=== PATIENT | female | born 1950 | race Caucasian/White ===

== ENCOUNTER 2020-04-27 12:48 | Inpatient (IN) | payer OTHER, MEDICARE ==
[~2020-04-27] VITALS: Ht 160 cm; Wt 63.0 kg
--- NOTE | ~2020-04-27 | O ---
[facility] [place] [address] OPERATIVE REPORT Name: HUBER BURKS Room #: 456-P ADM IN M.R.#: [id number] Admission: 04/27/20 Attend Phys: Steve Key MD Discharge: Date of : 54 Report #: [id number] THIS REPORT FOR: cc: Heron Franco,Bal Michele MD ~ DATE OF SERVICE: 04/28/2020 PREOPERATIVE DIAGNOSIS: Suspected perforated appendicitis with large fecalith. POSTOPERATIVE DIAGNOSIS: Suspected perforated appendicitis with large fecalith. OPERATIVE PROCEDURE DONE: Laparoscopic appendectomy. OPERATING SURGEON: Bal Mathew MD INDICATIONS FOR THE PROCEDURE: The patient is a 69-year-old female who presented with complaints of nonspecific lower abdominal pain. Initial CT scan that was done showed features of suspected gallstone ileus. The patient with a history of cholecystectomy done about [address] subsequent [address] showed that the appendicolith was outside the bowel lumen. There was a question of a fairly large appendicolith with possible perforation. The patient was advised a diagnostic laparoscopy and appendectomy. The patient showed understanding and agreed to proceed. DESCRIPTION OF PROCEDURE: After explaining to the patient in detail and informed consent was obtained, the patient was identified in the preoperative holding area. The patient was transferred to the operating room and was placed in supine position. Sequential compressive devices were placed for DVT prophylaxis. Preoperative antibiotics were given. After induction of anesthesia, the abdomen was prepped and draped in a sterile fashion. Through a left upper quadrant 1 cm stab incision, I attempted to place a Veress needle; however, I was not able to get into the right intraperitoneal due to the patient's thin frame. I did not make any further attempts. I made another 1 cm incision in the left lower quadrant and using Optiview technique, peritoneal cavity was entered and pneumoperitoneum was created. Thereafter through a 2 cm supraumbilical incision, a 12 mm trocar was placed and another 5 mm trocar was placed through a suprapubic incision approximately about 2 cm above the pubic symphysis. On initial inspection, the patient was noted to have some free fluid in the pelvis and right lower quadrant region. The appendix appeared to be very short and was adhered to the lateral abdominal wall. At the base of the appendix, there was a large fecalith that was perforated. Appendix showed features of inflammation. A window was created in the mesoappendix. Mesoappendix was divided using a DO white load stapler. Another blue load stapler was used to divide the base of the appendix. Thorough saline irrigation [address] [address] OPERATIVE REPORT Name: HUBER BURKS Room #: 456-P [facility] IN M.R.#: [id number] Admission: 04/27/20 Attend Phys: Steve Key MD Discharge: Date of : 54 Report #: [id number] was given. The appendicolith and the appendix were retrieved using an EndoCatch. Absolute hemostasis was ensured. A 19-Polish DAMON drain was placed in the pelvis and this was anchored in place with 2-0 nylon. The 12 mm port site incision in the supraumbilical region was closed with 0 Vicryl for the fascia. Skin was closed with 4-0 Monocryl for all the incisions. Dermabond was applied. The patient was stable at the end of the procedure. The patient was awoken from anesthesia and was transferred to the recovery room in stable condition. ESTIMATED BLOOD LOSS: Approximately 10 mL. CONDITION OF THE PATIENT: Stable. FLUIDS GIVEN: Per anesthesia notes. SPECIMEN SENT: Appendix. COMPLICATIONS: None. ANESTHESIA: General anesthesia. By: 1710 1727 Bal Mathew MD /nt
[2020-04-27 13:03] VITALS: BP 119/75
[2020-04-27 13:39] LABS: ABSOLUTE NEUTROPHILS 7.8 thou/uL (1.4-8.2); BASOPHILS 0.3 % (0.0-2.0); EOSINOPHILS 0.5 % (0.0-3.0); HEMATOCRIT 36.4 % (37.0-47.0); HEMOGLOBIN 11.9 gm/dL (12.0-15.0); LYMPHOCYTES 12.7 % (24.0-44.0); MCH 29.8 pg (26.0-34.0); MCHC 32.7 g/dL (28.0-37.0); MONOCYTES 7.7 % (1.0-8.0); PLATELET COUNT 250 thou/uL (150-400); POLYS 78.8 % (36.0-66.0); RBC 4.01 mil/uL (4.20-5.00); RDW 13.6 % (10.5-14.5); WBC 9.9 thou/uL (4.0-11.0)
[2020-04-27 13:44] LABS: CALCIUM 8.9 mg/dL (8.5-10.1); CREATININE 0.7 mg/dL (0.6-1.0); POTASSIUM 3.4 mmol/L (3.5-5.1)
[2020-04-27 15:31] LABS: ALBUMIN 3.5 g/dL (3.4-5.0); DIRECT BILIRUBIN 0.1 mg/dL (<0.1-0.2); TOTAL BILIRUBIN 0.6 mg/dL (0.2-1.0)
[2020-04-27 17:01] VITALS: BP 101/77
[2020-04-27 17:28] VITALS: BP 92/47
[2020-04-27 17:39] LABS: FOLIC ACID 27.8 ng/mL (8.6-58.9)
[2020-04-27 17:48] VITALS: BP 101/53
--- NOTE | 2020-04-27 18:18 | NUR ---
PATIENT ARRIVED TO UNIT AT APPROX 1750. VSS; TEMP ELEVATED. WILL INFORM PROVIDER. DENIES PAIN. BELONGINGS DOCUMENTED. HX AND EDUCATED COMPLETED. FALL PRECAUTIONS IN PLACE. WILL ENDORSE TO NOC RN
[2020-04-27 20:11] VITALS: BP 103/55
--- NOTE | 2020-04-28 03:20 | NUR ---
PT CARE ASSUMED WITH PT IN BED AND ADMISIOB STARTED BY DAY NURSE.ADMISSION SYSTEM ASSESSMENT AND OTHER COMPLETED.PT IS A.O X4.PT IS UP WITH UP WITH STANDBY ASSIST TO THE RESTROOM.PT C/O PAIN AND VINNY POWER ORDERED FENTANYL Q4H PRN FOR PAIN MANAGEMENT.IV ACCESS ON LT AC WITH NS AT 125CC/HR.PT HAD A BM FOR ME YESTERDAY.PT IS ON ROOM AIR.PT IS ALLERGY TO LATEX.WILL CONTINUE TO MONITOR POC
[2020-04-28 04:31] VITALS: BP 74/41
[2020-04-28 05:19] LABS: ABSOLUTE NEUTROPHILS 8.6 thou/uL (1.4-8.2); BASOPHILS 0.1 % (0.0-2.0); LYMPHOCYTES 12.9 % (24.0-44.0); MCH 30.2 pg (26.0-34.0); MCHC 33.3 g/dL (28.0-37.0); MCV 90.7 fL (80.0-100.0); MONOCYTES 5.5 % (1.0-8.0); POLYS 81.5 % (36.0-66.0); RBC 3.31 mil/uL (4.20-5.00); RDW 13.6 % (10.5-14.5); WBC 10.6 thou/uL (4.0-11.0)
[2020-04-28 05:25] LABS: CALCIUM 7.7 mg/dL (8.5-10.1); CREATININE 0.8 mg/dL (0.6-1.0); MAGNESIUM 1.7 mg/dL (1.8-2.4); POTASSIUM 3.3 mmol/L (3.5-5.1)
[2020-04-28 05:37] LABS: PLATELET COUNT 173 thou/uL (150-400)
[2020-04-28 07:21] VITALS: BP 93/51
[2020-04-28 08:25] VITALS: BP 110/54
[2020-04-28 08:44] LABS: APTT 35.7 Seconds (24.5-32.8); INR 1.2; PROTIME 13.4 Seconds (9.3-11.4)
[2020-04-28 09:11] LABS: URINE BILIRUBIN NEGATIVE (Negative); URINE BLOOD NEGATIVE (Negative); URINE CLARITY CLEAR; URINE COLOR YELLOW; URINE GLUCOSE-RANDOM* NEGATIVE (Negative); URINE KETONES NEGATIVE (Negative); URINE NITRITE-REFLEX NEGATIVE (Negative); URINE PROTEIN (DIPSTICK) NEGATIVE (Negative); URINE SPECIFIC GRAVITY 1.025 (1.005-1.035); URINE UROBILINOGEN 0.2 E.U./dl (0.2-1.0)
[2020-04-28 09:14] LABS: URINE LEUKOCYTES-REFLEX 1+ (Negative)
[2020-04-28 09:46] LABS: CASTS None Seen /LPF (None Seen); CRYSTALS None Seen /LPF (None Seen); MUCUS 0-3 Light strn/LPF (None Seen); SQUAMOUS 4-10 Moderate /LPF (0-3)
[2020-04-28 09:47] LABS: BACTERIA-REFLEX >30 Many /HPF (None Seen); URINE RBC None Seen /HPF (0-2); URINE WBC-REFLEX 6-15 Few /HPF (0-5)
[2020-04-28 09:48] LABS: RENAL EPITHELIAL CELLS 0-3 Few /LPF (None Seen)
--- NOTE | 2020-04-28 12:17 | NUR ---
PT ADMITTED RELATED TO GALLSTONES; ILLIEUS; CONSTIPATION. CM REVIEWED CHART AND SPOKE WITH CARE TEAM. CM CALLED AND SPOKE WITH PT OVER THE PHONE THIS DAY. PT APPEARED TO BE A&O X4. CM ROLE INTRODUCED. PT INDICATED SHE [place] [facility] [place] [facility] AND THAT HE DTR RESIDES WITH HER. THERE ARE 5 STEPS TO ENTER AND 5 UP AND 5 DOWN INSIDE. 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 PT INDICATED NO HH OR OP PT HX. PT INDICATED SHE PLANS TO RETURN HOME ONCE MEDICALLY STABLE. PT TO HAS GEN SURGERY CONSULT FOR A DIAGNOSTIC LAPROSCOPY AND STONE REMOVAL THIS DAY. CM TO FOLLOW INDICATED WITH DC PLANNING.
--- NOTE | 2020-04-28 13:51 | NUR ---
ASSUMED PT CARE THIS AM. PT HAD A LOW BLOOD PRESSURE THIS AM OF 93/51, DOCTOR CALLED AND ORDERED A FLUID BOLUS TO INCREASE BP. PATIENT REPORTING THAT THIS BP IS NORMAL FOR HER. REPORTING NO NAUSEA. ABDOMINAL PAIN REPONDING WELL TO MEDS GIVEN PER EMAR. PT HAS BEEN CONTINENT AND AMBULATORY TO THE BATHROOM WITH STANDBY ASSIST. IV PATENT, MEDS AND FLUIDS INFUSING WELL. PT REMAINS NPO TODAY. DR. FRANCISCO ORDERED A CT WITH IV CONTRAST, COMPLETED. THEN ORDERED A CT WITH PO CONTRAST. VERIFIED THAT DR FRANCISCO WANTED THE PATIENT TO HAVE THE PO CONTRAST EVEN WITH BEING NPO, DOCTOR CONFIRMED THIS TO BE DONE. URINE IS A DARK PEG COLOR. PT IS PLEASANT, AND CALLS APPROPRIATELY WHEN NEEDED.
[2020-04-28 15:10] VITALS: BP 88/46
[2020-04-28 20:20] VITALS: BP 97/56
--- NOTE | 2020-04-29 03:20 | NUR ---
PT CARE ASSUMED WITH PT IN BED .PT APPEARED TO BE IN NO ACUTE DISTRESS AT POINT OF SHIFT CHANGE.PT IS UP WITH STANDBY ASSISTANCE.PT HAD APPENDECTOMY YESTERDAY AND LAP SITES OK.PT HAS A DAMON DRAIN IN PLACE .PAIN MANAGED WITH FENTANYL.IV ACCESS GOT BAD AND NEW INSERTED IN LT HAND WITH NS AT 125.PT DID VOID AND BLADDER SCAN SHOWING 262.WILL RECHECK AND CONTINUE TO MONITOR.
[2020-04-29 04:35] VITALS: BP 101/63
[2020-04-29 06:13] LABS: ABSOLUTE NEUTROPHILS 7.8 thou/uL (1.4-8.2); BASOPHILS 0.1 % (0.0-2.0); HEMATOCRIT 29.4 % (37.0-47.0); HEMOGLOBIN 9.8 gm/dL (12.0-15.0); LYMPHOCYTES 5.4 % (24.0-44.0); MCH 30.4 pg (26.0-34.0); MCHC 33.4 g/dL (28.0-37.0); MCV 91.2 fL (80.0-100.0); MONOCYTES 4.3 % (1.0-8.0); PLATELET COUNT 155 thou/uL (150-400); POLYS 90.2 % (36.0-66.0); RBC 3.23 mil/uL (4.20-5.00); RDW 13.5 % (10.5-14.5); WBC 8.7 thou/uL (4.0-11.0)
[2020-04-29 07:06] LABS: ALBUMIN 2.4 g/dL (3.4-5.0); CALCIUM 8.2 mg/dL (8.5-10.1); CREATININE 0.7 mg/dL (0.6-1.0); MAGNESIUM 1.7 mg/dL (1.8-2.4); POTASSIUM 3.8 mmol/L (3.5-5.1); TOTAL BILIRUBIN 0.8 mg/dL (0.2-1.0); TOTAL PROTEIN 5.1 g/dL (6.4-8.2)
[2020-04-29 08:20] VITALS: BP 104/63
[2020-04-29 09:20] VITALS: BP 115/74
[2020-04-29 16:00] VITALS: BP 115/74
--- NOTE | 2020-04-29 17:03 | NUR ---
RN ASSUMED PT'S CARE AT 0700AM, PT IS A&OX3, PT HAD LAPAROSCOPIC APPENDECTOMY AT 04/28/20, PT IS CONTINUING IV ABX, PT IS TOLERATED REGULAR FOOD AT LUCH TIME, PT GETS UP TO WALK IN HALLWAY, PT'S ABD DAMON DRINAGE TUBE IS WORKING, SURGICAL AREAS ARE INTACT , PT 'S VS ARE STABLE, PT DENIES PAIN AND N/V BY THIS TIME.
[2020-04-30 05:23] LABS: HEMATOCRIT 31.7 % (37.0-47.0); HEMOGLOBIN 10.3 gm/dL (12.0-15.0); MCH 29.9 pg (26.0-34.0); MCHC 32.7 g/dL (28.0-37.0); MCV 91.4 fL (80.0-100.0); RBC 3.46 mil/uL (4.20-5.00); RDW 13.6 % (10.5-14.5); WBC 7.3 thou/uL (4.0-11.0)
[2020-04-30 05:40] LABS: CALCIUM 8.4 mg/dL (8.5-10.1); CREATININE 0.7 mg/dL (0.6-1.0); MAGNESIUM 1.7 mg/dL (1.8-2.4); POTASSIUM 3.6 mmol/L (3.5-5.1)
--- NOTE | 2020-04-30 07:20 | NUR ---
VSS-AFEBRILE. RESTED WELL THROUGH NIGHT WITH FEW NEEDS. PAIN WELL CONTROLLED WITH IV AND PO PAIN MEDICATIONS. OOB AD MARIELA-STEADY ON FEET. DAMON DRAIN PUT OUT 30ML SEROUS FLUID. NO DIFFICULTY VOIDING, SMALL, FIRM BM OVERNIGHT. CALLS APPROPRIATELY FOR ANY NEEDED ASSISTANCE.
[2020-04-30 07:51] VITALS: BP 121/73
[2020-04-30] MEDS ORDERED: PROPRANOLOL 1010 MG PO (11:28)
[2020-04-30] MEDS ORDERED: METRONIDAZOLE500 M4 PO (11:28)
[2020-04-30] MEDS ORDERED: ULTRAM50 MG PO (11:28)
[2020-04-30] MEDS ORDERED: OXYCODONE HCL 55 MG PO (11:28)
[2020-04-30] MEDS ORDERED: LEVOFLOXACIN500 MG PO (11:28)
[2020-04-30] MEDS ORDERED: PEPCID20 MG PO (11:28)
[2020-04-30] MEDS ORDERED: COLACE100 MG PO (11:28)
--- NOTE | 2020-04-30 11:52 | NUR ---
ASSUMED PT CARE THIS AM. PT VSS, A&OX4. PT COMPLAINS OF PAIN IN THE LOWER ABDOMINAL REGION, DR MADE AWARE TO ORDER DIFFERENT PAIN MEDICATION. LAP SITES ARE C/D/I. DAMON DRAIN WORKING WELL. IV PATENT, MEDS INFUSED AND TAKEN PO WITHOUT COMPLAINT. PT CONTINENT, AMBULATORY TO THE BATHROOM. CALLS APPROPRIATELY WHEN NEEDED. PT ON TELEMETRY AND ON ROOM AIR.
[2020-04-30 12:43] VITALS: BP 121/73
--- NOTE | 2020-05-03 17:06 | PATH ---
[facility] [address] [place] [address] PATHOLOGY RPT PROCEDURE Name: HUBER ANAYA Room #: 456-P DIS IN M.R.#: [id number] Admission: 04/27/20 Date of : 54 Discharge: 04/30/20 Report #: [id number] Path Case #: [id number] [facility] Accession Number: [id number] . 01 Material submitted: . appendix - APPENDIX . 01 Clinical history: . LAPAROSCOPIC APPENDECTOMY POSSIBLE PERFORATRED APPENDIX . 02 Diagnosis: Vermiform appendix, laparoscopic excision: - Acute appendicitis, with transmural inflammation, perforation, and associated acute serositis. - Negative for malignancy. (MLK/db; 05/03/2020) LBQ 05/03/2020 1508 Local . 02 Electronically signed: . Briana Max MD, Pathologist NPI- [id number] . 01 Gross description: . The specimen is received in formalin, labeled "Huber Anaya, marty". Received is a vermiform appendix measuring 4.2 cm in length by up to 1.4 cm in diameter with a moderate amount of attached mesoappendix. The serosal surface is dusky pink-felix in appearance with overlying exudate. There is a 1.2 cm perforation noted, which is 1.3 cm from the proximal margin and a patent to dilated lumen. The surgical margin is closed with a line of perri. The perri are removed and the new margin is inked black. Sectioning reveals a pinpoint to dilated lumen. The specimen is submitted entirely as follows: . A1 proximal margin and bisected tip A2 entire area of perforation A3 remainder of appendix. (CAA; 05/02/2020) QA/[facility] 05/02/2020 1114 Local . 02 Pathologist provided ICD-10: K35.80 . 02 CPT . 407073 Specimen Comment: A courtesy copy of this report has been sent to [phone] Specimen Comment: Report sent to [address] [address] PATHOLOGY RPT PROCEDURE Name: HUBER ANAYA Room #: 456-P DIS IN M.R.#: [id number] Admission: 04/27/20 Date of : 54 Discharge: 04/30/20 Report #: [id number] Path Case #: [id number] Performed at: 01 [facility] Donna Valerio [address], [place], [place] [id number] MD Ehsan Harvey MD Phone: [phone] Performed at: [address] [id number] MD Lindsay Wen MD Phone: [phone]
== END 2020-04-30 13:26 | disposition home or self-care (01) | DRG 853 ==
LOC: ER 12:48 → 4W 15:31 → EROBS 15:31 → 4W 17:33
PROVIDERS: Nurse Practitioner; Surgery; ADMIT Internal Medicine; ATTEND Internal Medicine
PROC: 0DTJ4ZZ Resection of Appendix, Percutaneous Endoscopic Approach (ICD-10-PCS; principal; 2020-04-28)
DX: A41.9 Sepsis, unspecified organism (principal); K35.32 Acute appendicitis with perforation, localized peritonitis, and gangrene, without abscess; K56.3 Gallstone ileus; I95.9 Hypotension, unspecified; E87.6 Hypokalemia; G47.33 Obstructive sleep apnea (adult) (pediatric); K56.41 Fecal impaction; Z20.822 Contact with and (suspected) exposure to COVID-19; Z98.84 Bariatric surgery status; Z90.710 Acquired absence of both cervix and uterus; Z90.49 Acquired absence of other specified parts of digestive tract; Z91.040 Latex allergy status; Z88.8 Allergy status to other drugs, medicaments and biological substances; Z91.048 Other nonmedicinal substance allergy status
CPT/HCPCS: 10045; 50010; 50101; 50249; 50411; 50555; 50558; 50739; 50740; 51489; 52265; 52266; 53307; 53310; 54022; 54118; 56525; 56526; 57257; 62110; 62900; 70005

== ENCOUNTER → 2020-05-19 | Outpatient (CLI) | payer OTHER, MEDICARE ==
[~2020-05-19] MED LIST: COLACE100 MG PO; LEVOFLOXACIN500 MG PO; METRONIDAZOLE500 M4 PO; OXYCODONE HCL 55 MG PO; PEPCID20 MG PO; PROPRANOLOL 1010 MG PO; ULTRAM50 MG PO
== END ==
LOC: SJCVC 09:33
PROVIDERS: ATTEND Internal Medicine Cardiovascular Disease
DX: I45.10 Unspecified right bundle-branch block (principal); R94.31 Abnormal electrocardiogram [ECG] [EKG]; I10 Essential (primary) hypertension; E78.00 Pure hypercholesterolemia, unspecified; R00.2 Palpitations; Z87.19 Personal history of other diseases of the digestive system; R06.00 Dyspnea, unspecified; Z88.0 Allergy status to penicillin; Z79.899 Other long term (current) drug therapy

== ENCOUNTER → 2020-06-15 | Outpatient (CLI) | payer OTHER, MEDICARE | LOC: SJCVCIMAG 10:57 | PROVIDERS: ATTEND Internal Medicine Cardiovascular Disease | DX: I10 Essential (primary) hypertension (principal); E78.00 Pure hypercholesterolemia, unspecified; R00.2 Palpitations; R06.00 Dyspnea, unspecified; E66.9 Obesity, unspecified; E78.5 Hyperlipidemia, unspecified; G47.33 Obstructive sleep apnea (adult) (pediatric); R53.83 Other fatigue; Z88.1 Allergy status to other antibiotic agents; Z91.040 Latex allergy status; Z88.8 Allergy status to other drugs, medicaments and biological substances; Z79.899 Other long term (current) drug therapy; Z99.89 Dependence on other enabling machines and devices ==

== ENCOUNTER → 2020-07-05 | Outpatient (CLI) | payer OTHER | LOC: CAT 14:38 | PROVIDERS: ATTEND Nurse Practitioner | DX: Z13.6 Encounter for screening for cardiovascular disorders (principal); I25.10 Atherosclerotic heart disease of native coronary artery without angina pectoris; E78.00 Pure hypercholesterolemia, unspecified ==

== ENCOUNTER → 2020-07-05 | Outpatient (CLI) | payer OTHER, MEDICARE | LOC: BC 13:49 | PROVIDERS: ATTEND Nurse Practitioner | DX: Z12.31 Encounter for screening mammogram for malignant neoplasm of breast (principal) ==

== ENCOUNTER → 2020-09-11 | Outpatient (CLI) | payer OTHER, MEDICARE ==
--- NOTE | 2020-09-11 09:41 | 2DMMODE ---
[facility] [place] [address] 2 D/M-MODE ECHOCARDIOGRAM Name: HUBER BURKS Room #: REG [facility]..#: [id number] Admission: 09/11/20 Attend Phys: JUNG Mederos Discharge: Date of : 54 Report #: [id number] THIS REPORT FOR: cc: Jimbo Emerson,Adam Alvarenga MD [facility] ~ APPROVED REPORT Study performed: 09/11/2020 08:06:33 EXAM: Comprehensive 2D, Doppler, and color-flow Echocardiogram Patient Location: Out-Patient Status: routine BSA: 1.61 HR: 55 bpm BP: 114/76 mmHg Rhythm: NSR Other Information Study Quality: Good Indications Palpitations. 2D Dimensions RVDd: 34.89 mm IVSd: 9.53 (7-11mm) LVOT Diam: 18.96 (18-24mm) LVDd: 44.15 mm PWd: 9.39 (7-11mm) LVDs: 28.51 (25-40mm) Left Atrium: 32.50 (27-40mm) Aortic Root: 32.05 mm Volumes Left Atrial Volume (Systole) Single Plane 4CH: 46.89 mL Single Plane 2CH: 45.70 mL LA ESV Index: 30.00 mL/m2 Aortic Valve AoV Peak Nik.: 1.17 m/s AO Peak Gr.: 5.49 mmHg LVOT Max P.97 mmHg LVOT Max V: 1.00 m/s RODOLFO Vmax: 2.40 cm2 [facility] [address] [place] [address] 2 D/M-MODE ECHOCARDIOGRAM Name: HUBER BURKS Room #: REG [facility]#: [id number] Admission: 09/11/20 Attend Phys: JUNG Mederos Discharge: Date of : 54 Report #: [id number] Mitral Valve E/A Ratio: 1.3 MV Decel. Time: 216.60 ms MV E Max Nik.: 0.88 m/s MV A Nik.: 0.68 m/s MV PHT: 62.81 ms IVRT: 87.66 ms Pulmonary Valve PV Peak Nik.: 0.82 m/s PV Peak Gr.: 2.68 mmHg Tricuspid Valve TR Peak Nik.: 2.16 m/s RAP Estimate: 5.00 mmHg TR Peak Gr.: 19.00 mmHg PA Pressure: 24.00 mmHg Left Ventricle The left ventricle is normal size. There is normal LV segmental wall motion. There is normal left ventricular wall thickness. The left ventricular systolic function is normal. LVEF is 60-65%. The left ventricular diastolic function is normal. Right Ventricle The right ventricle is normal size. The right ventricular systolic function is normal. Atria The left atrium size is normal. The right atrium size is normal. Aortic Valve The aortic valve is normal in structure. No aortic regurgitation is present. There is no aortic valvular stenosis. Mitral Valve The mitral valve is normal in structure. Trace mitral regurgitation. No evidence of mitral valve stenosis. Tricuspid Valve The tricuspid valve is normal in structure. Trace tricuspid regurgitation. Estimated PAP is 25mmHg. Pulmonic Valve The pulmonary valve is normal in structure. Trace pulmonic regurgitation. [facility] [address] [place] [address] 2 D/M-MODE ECHOCARDIOGRAM Name: HUBER BURKS Room #: REG [facility]#: [id number] Admission: 09/11/20 Attend Phys: JUNG Mederos Discharge: Date of : 54 Report #: [id number] Great Vessels The aortic root is normal in size. Ascending aorta is not well visualized. IVC is normal in size and collapses >50% with inspiration. Pericardium There is no pericardial effusion. <Conclusion> Normal left ventricular size/wall thickness Ejection fraction 60-65% Normal right ventricular size and function Normal atrial size Color-flow Doppler study was performed of the aortic/mitral/tricuspid/pulmonary valve Normal aortic/mitral valve structure and function Trace mitral valve insufficiency Trace tricuspid valve insufficiency Pulmonary systolic pressure estimated at 23 mmHg No pericardial effusion Normal aortic root size. <ELECTRONICALLY SIGNED> By: Adam Higgins MD, [facility] 09/11/2041 0 0 Adam Higgins MD, FACC /INF
== END ==
LOC: ULTRA 07:53
PROVIDERS: ATTEND Nurse Practitioner
DX: N28.1 Cyst of kidney, acquired (principal); D30.01 Benign neoplasm of right kidney

== ENCOUNTER → 2020-10-04 | Outpatient (CLI) | payer OTHER, MEDICARE | LOC: RAD 08:56 | PROVIDERS: ATTEND Nurse Practitioner | DX: M47.812 Spondylosis without myelopathy or radiculopathy, cervical region (principal); R53.1 Weakness ==

== ENCOUNTER → 2020-10-23 | Outpatient (CLI) | payer OTHER, MEDICARE | LOC: MRI 11:23 | PROVIDERS: ATTEND Nurse Practitioner | DX: M50.323 Other cervical disc degeneration at C6-C7 level (principal); M48.02 Spinal stenosis, cervical region; M47.812 Spondylosis without myelopathy or radiculopathy, cervical region ==

== ENCOUNTER → 2021-01-01 | Outpatient (CLI) | payer OTHER, MEDICARE | LOC: SJCVC 13:02 | PROVIDERS: ATTEND Internal Medicine Cardiovascular Disease | DX: I45.10 Unspecified right bundle-branch block (principal); R94.31 Abnormal electrocardiogram [ECG] [EKG]; I10 Essential (primary) hypertension; I49.3 Ventricular premature depolarization; E78.00 Pure hypercholesterolemia, unspecified; J42 Unspecified chronic bronchitis; E78.5 Hyperlipidemia, unspecified; G47.30 Sleep apnea, unspecified; Z87.19 Personal history of other diseases of the digestive system; Z91.040 Latex allergy status; Z88.8 Allergy status to other drugs, medicaments and biological substances; Z91.018 Allergy to other foods; Z79.899 Other long term (current) drug therapy ==

== ENCOUNTER → 2021-01-23 | Outpatient (CLI) | payer OTHER, MEDICARE | LOC: RAD 10:54 | PROVIDERS: ATTEND Nurse Practitioner | DX: M47.812 Spondylosis without myelopathy or radiculopathy, cervical region (principal); M25.531 Pain in right wrist; R68.84 Jaw pain ==

== ENCOUNTER → 2021-01-30 | Outpatient (CLI) | payer OTHER, MEDICARE | LOC: CAT 09:50 | PROVIDERS: ATTEND Nurse Practitioner | DX: S02.609A Fracture of mandible, unspecified, initial encounter for closed fracture (principal); X58.XXXA Exposure to other specified factors, initial encounter; Y92.89 Other specified places as the place of occurrence of the external cause; Y93.89 Activity, other specified; Y99.8 Other external cause status ==